=== PATIENT | female | born 1970 | race Hispanic/Latino ===

== ENCOUNTER 2021-06-05 19:38 | Emergency (ER) | payer MEDICAID ==
[~2021-06-05] VITALS: Ht 154.9 cm; Wt 59.0 kg
[2021-06-05 19:44] VITALS: BP 129/74
[2021-06-05 19:48] VITALS: BP 129/74
[2021-06-05] MEDS ORDERED: KETOROLAC 60 MG VIAL (30MG/ML) IM ONE (20:00)
[2021-06-05] MEDS ORDERED: DEXAMETHASONE SOD PHOSPHATE 4 MG/ML 1ML VIAL IM ONE (20:00)
[2021-06-05] MEDS ORDERED: NAPR-1180 PO (20:16)
== END 2021-06-05 20:48 | disposition home or self-care (01) ==
LOC: EDH 19:38
DX: M25.50 Pain in unspecified joint (principal); M19.90 Unspecified osteoarthritis, unspecified site; G89.29 Other chronic pain; Z79.1 Long term (current) use of non-steroidal anti-inflammatories (NSAID); Z98.51 Tubal ligation status; Z79.52 Long term (current) use of systemic steroids
CPT/HCPCS: 96372 ×2; 99284; J1100; J1885

== ENCOUNTER 2022-02-19 15:23 | Emergency (ER) | payer MEDICAID ==
[~2022-02-19] VITALS: Ht 154.9 cm; Wt 61.2 kg
[~2022-02-19 15:23] MED LIST: NAPR-1180 PO
[2022-02-19 15:27] VITALS: BP 153/93
[2022-02-19] MEDS ORDERED: ACETAMINOPHEN 500 MG TABLET PO ONE (16:00)
[2022-02-19] MEDS ORDERED: 0.9%NACL 1000ML 1,000 ML IV ONE (16:00)
[2022-02-19 16:29] LABS: EOSINOPHILS % (AUTO) 1.2 % (0.0-8.0); HEMATOCRIT 38.7 % (36-48); LYMPHOCYTES % (AUTO) 37.9 % (21.0-51.0); MEAN CORPUSCULAR HEMOGLOBIN 31.3 pg (27.0-33.0); MEAN CORPUSCULAR HGB CONC 33.1 g/dL (32.0-36.0); MEAN CORPUSCULAR VOLUME 94.6 fL (79-99); MONOCYTES % (AUTO) 8.6 % (3.0-13.0); NEUTROPHILS % (AUTO) 51.1 % (40.0-77.0); PLATELET COUNT (AUTO) 283 K/uL (130-400); RED BLOOD CELL COUNT(AUTO) 4.09 MIL/uL (4.00-5.50); RED CELL DISTRIBUTION WIDTH 11.6 % (11.0-15.5); WHITE BLOOD COUNT (AUTO) 4.2 K/uL (4.8-10.8)
[2022-02-19 16:32] LABS: APPEARANCE,URINE Clear (CLEAR); BILIRUBIN,URINE Negative (NEGATIVE); COLOR,URINE Yellow (YELLOW); GLUCOSE, URINE (UA) Negative (NEGATIVE); KETONES,URINE Negative (NEGATIVE); LEUKOCYTE ESTERASE ,URINE Negative (NEGATIVE); NITRATE,URINE Negative (NEGATIVE); OCCULT BLOOD,URINE Negative (NEGATIVE); PROTEIN,URINE Negative (NEGATIVE)
[2022-02-19 16:42] LABS: CREATININE 0.7 mg/dL (0.5-1.5); POTASSIUM 3.5 mmol/L (3.5-5.1)
[2022-02-19 16:44] LABS: BACTERIA,URINE Rare /HPF (None Seen); RBC,URINE 0-1 /HPF (0-1); SQUAMOUS EPITHELIAL CELL,UR Rare /HPF (0-2); WBC,URINE 0-1 /HPF (0-1)
[2022-02-19 16:47] LABS: ALBUMIN 4.2 g/dL (3.5-5.0); BILIRUBIN,TOTAL 0.4 mg/dL (0.2-1.0); TOTAL PROTEIN, SERUM 7.6 g/dL (6.0-8.3)
[2022-02-19] MEDS ORDERED: NAPR-1192 PO (16:53)
[2022-02-19] MEDS ORDERED: ONDANSETRON 4MG INJ IVP ONE (17:00)
[2022-02-19] MEDS ORDERED: KETOROLAC 30MG VIAL (30MG/ML) IVP ONE (17:00)
== END 2022-02-19 17:17 | disposition home or self-care (01) ==
LOC: EDH 15:23
DX: G44.209 Tension-type headache, unspecified, not intractable (principal); G43.909 Migraine, unspecified, not intractable, without status migrainosus; M19.90 Unspecified osteoarthritis, unspecified site; F32.A Depression, unspecified; Z98.890 Other specified postprocedural states
CPT/HCPCS: 36415; 80053; 81001; 85025; 96361; 96374; 96375; 99284; J1885; J2405; J7030

== ENCOUNTER 2023-02-14 22:26 | Emergency (ER) | payer MEDICAID ==
[~2023-02-14] VITALS: Ht 154.9 cm; Wt 63.0 kg
[~2023-02-14 22:26] MED LIST changes: +NAPR-1192 PO
[2023-02-14 22:28] VITALS: BP 108/62
[2023-02-15] MEDS ORDERED: KETOROLAC 60 MG VIAL (30MG/ML) IM ONE (00:30)
[2023-02-15] MEDS ORDERED: CYCL-309 PO (01:06)
[2023-02-15] MEDS ORDERED: GABA300C PO (01:06)
[2023-02-15] MEDS ORDERED: IBUP-1493 PO (01:06)
== END 2023-02-15 01:21 | disposition home or self-care (01) ==
LOC: EDH 22:26
DX: G89.29 Other chronic pain (principal); M54.9 Dorsalgia, unspecified; Z90.710 Acquired absence of both cervix and uterus
CPT/HCPCS: 99284; 72100; 72190; 72072; 96372; J1885

== ENCOUNTER 2023-11-11 12:20 | Emergency (ER) | payer MEDICAID ==
[~2023-11-11] VITALS: Ht 154.9 cm; Wt 61.7 kg
[~2023-11-11 12:20] MED LIST changes: +CYCL-309 PO; +GABA300C PO; +IBUP-1493 PO
[2023-11-11 12:36] VITALS: BP 120/88; PULSE 80; RESP 20
== END 2023-11-11 14:21 | disposition left against medical advice (07) ==
LOC: EDH 12:20
DX: M54.50 Low back pain, unspecified (principal); Z53.21 Procedure and treatment not carried out due to patient leaving prior to being seen by health care provider
CPT/HCPCS: 99281

== ENCOUNTER 2025-04-19 12:06 | Emergency (ER) | payer MEDICAID ==
[~2025-04-19] VITALS: Ht 157.5 cm; Wt 62.6 kg
[2025-04-19] MEDS ORDERED: CEPH500T PO (14:05)
[2025-04-19] MEDS: LIDOCAINE HCL 1% 20 ML VIAL INJ STA (14:05)
--- NOTE | 2025-04-19 14:05 | ERN ---
General Chief Complaint: Constipation Stated Complaint: HEMMORHOID, CONSTIPATION Time Seen by MD: 12:08 Time Seen by Midlevel: 12:08 Source: patient History of Present Illness Initial Comments 55-year-old female who presents to the emergency department due to hemorrhoids onset two days. Patient reports she has a chronic history of constipation. Patient last bowel movement was yesterday. PMHx anxiety, depression, hypercholesterolemia Allergies: Coded Allergies: No Known Allergies (Unverified Allergy, Unknown, 06/05/21) Home Meds Active Scripts Cephalexin (Cephalexin) 500 Mg Tablet, 1 TAB PO BID for 10 Days, #20 TAB 0 Refills Prov:NINO GOMEZ 04/19/25 Ibuprofen (Motrin/Advil) 800 Mg Tab, 800 MG PO TID, #30 TAB Prov:JANAY DE LA GARZA MD 02/15/23 Gabapentin (Neurontin) 300 Mg Capsule, 300 MG PO TID, #60 CAP Prov:JANAY DE LA GARZA MD 02/15/23 Cyclobenzaprine HCl (Cyclobenzaprine HCl) 10 Mg Tablet, 10 MG PO TID, #60 TAB Prov:JANAY DE LA GARZA MD 02/15/23 Naproxen (Naproxen) 375 Mg Tablet, 375 MG PO BID for 7 Days, #14 TAB Prov:NADIA HURLEY MD 02/19/22 Naproxen (Naprosyn) 500 Mg Tablet, 500 MG PO BIDPC for 10 Days, #20 TAB 0 Refills Prov:JORGE CHAUDHARY MD 06/05/21 Past Medical History Past Medical History: Anxiety, Depression, High Cholesterol, Other Medical History Other: SPINAL STENOSIS Past Surgical History: Hysterectomy, BTL Surgical History Other: NECK Family History Family History: Negative Social History Social History: Negative, Lives with family ROS Dictation Constitutional: Negative for fever,chills, and weight loss Eyes: Negative for injury, pain,redness, and discharge ENT: Negative for injury,pain or swelling Cardiovascular: Negative for chest pain, palpitations, and edema Respiratory: Negative for shortness of breath, cough, and wheezing, Abdomen/GI: Negative for abdominal pain, nausea, vomiting, diarrhea, and constipation Rectal: Positive for Hemorrhoids Back: Negative for injury and pain : Negative for painful urination, bleeding or discharge MS/Extremity: Negative for injury and deformity Skin: Negative for rash, and discoloration Neuro: Negative for headache, weakness, numbness, tingling, and seizure Psych: Negative for suicide ideation, homicidal ideation, and hallucinations Physical Exam Physical Exam Dictation General: awake, alert, no acute distress Head/Face: Normocephalic, atraumatic Eyes: PERRL, EOMI Abdomen: Soft, non-tender, non-distended, normal bowel sounds, no guarding or rebound. Rectal: Thrombosed hemorrhoid Skin: Warm, dry, normal turgor, no rash MS/Extremity: Pulses equal, no cyanosis, neurovascular intact, FROM Neuro: COAx4, GCS 15, strength 5/5, CN 2-12 intact, normal cerebellar exam, normal gait Psych: Normal behavior, mood, and affect normal MDM MDM: Differential diagnosis: Hemorrhoids, thrombosed hemorrhoids, constipation Rationale: 55-year-old female who presents to the emergency department due to hemorrhoids onset two days. Patient reports she has a chronic history of constipation. Patient last bowel movement was yesterday. PMHx anxiety, depression, hypercholesterolemia Per physical examination thrombosed hemorrhoid noticed. Incision and drainage performed in the ED. antibiotics prescribed for outpatient treatment. Patient was educated on findings and diagnosis. Advised to follow up with PCP. Return if any worsening symptoms. Patient verbalized understanding. Patient stable for discharge. There are no social concerns with this patient. I independently interpreted the test that were performed, results were reviewed by me and considered findings on radiology if ordered. Medical management and examination interpretation discussions were had by me with other qualified healthcare professionals as indicated for the patient's care. ED Course Orders Procedure Category Date Status Time Lidocaine Hcl 1% 20ml PHA 04/19/25 Complete Vial (Lidocaine Hc 13:11 Current Medications Medications (Trade) Dose Ordered Sig/[place] Route PRN Reason Start Time Stop Time Status Last Admin Dose Admin Lidocaine HCl (Lidocaine HCl 1% 20ml Vial) 10 ml ONCE STAT INJ 04/19/25 13:11 04/19/25 13:13 DC 04/19/25 14:05 Vital Signs Date Time Temp Pulse Resp B/P (MAP) Pulse Ox O2 Delivery O2 Flow Rate FiO2 04/19/25 14:19 98.2 85 16 131/85 97 Room Air* 0 21 04/19/25 12:07 98.2 92 16 137/89 96 Room Air 0 Procedure Dictation Incision and drainage 4 mL of lidocaine Patient tolerated well No complications Performed by self and Dr. Hurley DX & DISP Disposition: Discharge Departure Impression: Primary Impression: Thrombosed hemorrhoids Condition: Stable Scripts Cephalexin (Cephalexin) 500 Mg Tablet 1 TAB PO BID for 10 Days, #20 TAB 0 Refills Prov: NINO GOMEZ 04/19/25 Additional Instructions: Discharge home. Rest. Follow up with primary care DrChilo in 24 hours. Return to the ER for any acute changes or worsening symptoms. If any medications were prescribed take as directed. Okay to continue home medications unless otherwise discussed during your visit in the emergency room today. Patient was also advised to follow-up with primary care physician in 1 to 2 days for continued monitoring. Referrals: JUANY CUELLO MD (PCP) I performed the substantive portion of the visit. I have reviewed and personally made and approve the management plan that is documented in the notes by myself or the ANT. I acknowledge full responsibility for the patient's management plan. NINO GOMEZ Apr 19, 2025 14:05
[2025-04-19 14:19] VITALS: BP 131/85; PULSE 85; RESP 16; TEMP 98.2; O2SAT 97
== END 2025-04-19 14:22 | disposition home or self-care (01) ==
LOC: EDH 12:06
DX: K64.5 Perianal venous thrombosis (principal); E78.00 Pure hypercholesterolemia, unspecified; Z79.1 Long term (current) use of non-steroidal anti-inflammatories (NSAID); Z79.899 Other long term (current) drug therapy; Z90.710 Acquired absence of both cervix and uterus
CPT/HCPCS: 46083; 99284